=== PATIENT | female | born 1960 | race American Indian/Alaskan Native ===

== ENCOUNTER 2017-04-04 11:41 | Emergency (ER) | payer MEDICARE ==
[2017-04-04 12:58] LABS: Basophils # (Auto) 0.1 K/mm3 (0.0-0.1); Basophils % (Auto) 1.2 % (0.0-1.8); Eosinophils # (Auto) 0.2 K/mm3 (0.0-0.4); Eosinophils % (Auto) 1.8 % (0.0-4.3); Hematocrit 33.1 % (30.3-42.9); Hemoglobin 10.4 gm/dl (10.1-14.3); Lymphocytes # (Auto) 1.7 K/mm3 (1.2-5.4); Lymphocytes % (Auto) 18.9 % (13.4-35.0); Mean Corpuscular HGB Conc 31 % (30-34); Monocytes # (Auto) 0.9 K/mm3 (0.0-0.8); Monocytes % (Auto) 10.3 % (0.0-7.3); Platelet Count 395 K/mm3 (140-440); Red Blood Count 4.96 M/mm3 (3.65-5.03); Red Cell Distribution Width 18.2 % (13.2-15.2)
[2017-04-04 13:02] LABS: Mean Corpuscular Hemoglobin 21 pg (28-32); Mean Corpuscular Volume 67 fl (79-97)
[2017-04-04] MEDS ORDERED: ATIVAN IV ONE (13:31)
[2017-04-04 13:51] LABS: BUN/Creatinine Ratio 17; Blood Urea Nitrogen 12 mg/dL (7-17); Calcium 9.2 mg/dL (8.4-10.2); Hemolysis Index 1
--- NOTE | 2017-04-04 14:07 | Emergency Department Report ---
ED Psych HPI - General Chief Complaint: Psych Stated Complaint: CHEST/BACK PAIN Time Seen by Provider: 04/04/17 13:11 Source: patient Mode of arrival: Ambulatory - History of Present Illness Initial Comments: History of EtOH previously quit is now suicidal threats of wanting to recently restarted alcohol is also having intermittent chest pain denies any shakes or DTs no fever no nausea vomiting no exertional cp or sob, no risks dvt/ pe no abdominal pain MD Complaint: suicidal ideation, feels depressed -: unknown Associated Psychiatric Symptoms: depression, suicidal ideation - Related Data Allergies Allergy/AdvReac Type Severity Reaction Status Date / Time No Known Allergies Allergy Unverified 04/04/17 11:59 ED Review of Systems ROS: Stated complaint: CHEST/BACK PAIN Other details as noted in HPI Comment: All other systems reviewed and negative Constitutional: denies: diaphoresis, fever, malaise, weakness ENT: denies: dental pain, epistaxis Respiratory: denies: cough, orthopnea, shortness of breath, SOB with exertion, SOB at rest, stridor Cardiovascular: chest pain. denies: palpitations, dyspnea on exertion, edema, syncope, paroxysmal nocturnal dyspnea Gastrointestinal: denies: abdominal pain, nausea, vomiting, diarrhea, constipation, hematemesis, melena, hematochezia Musculoskeletal: denies: joint swelling, arthralgia, myalgia Skin: denies: rash, lesions Neurological: denies: numbness, paresthesias, confusion, abnormal gait, vertigo Psychiatric: anxiety, depression, suicidal thoughts ED Past Medical Hx - Past Medical History Previous Medical History?: Yes Hx Hypertension: Yes Hx Arthritis: Yes Hx Psychiatric Treatment: Yes (depression) - Surgical History Past Surgical History?: Yes Additional Surgical History: gastric bypass. tummy tuck - Social History Smoking Status: Current Every Day Smoker Substance Use Type: Alcohol, Cocaine ED Physical Exam - General Limitations: No Limitations General appearance: alert, in no apparent distress, anxious - Head Head exam: Present: atraumatic, normocephalic - Eye Eye exam: Present: normal appearance, PERRL, EOMI - ENT ENT exam: Present: normal exam, normal orophraynx - Neck Neck exam: Present: normal inspection. Absent: tenderness, meningismus - Respiratory Respiratory exam: Present: normal lung sounds bilaterally, other (pulses equal bilaterally). Absent: respiratory distress, wheezes, rales, rhonchi, stridor, chest wall tenderness, prolonged expiratory - Cardiovascular Cardiovascular Exam: Present: regular rate, normal rhythm, normal heart sounds. Absent: systolic murmur, diastolic murmur, rubs, gallop - GI/Abdominal GI/Abdominal exam: Present: soft. Absent: distended, tenderness, guarding, rebound, mass, pulsatile mass - Extremities Exam Extremities exam: Present: normal inspection, normal capillary refill. Absent: pedal edema, joint swelling, calf tenderness - Back Exam Back exam: Present: normal inspection. Absent: tenderness, CVA tenderness (R), CVA tenderness (L), paraspinal tenderness, vertebral tenderness - Neurological Exam Neurological exam: Present: alert, oriented X3, CN II-XII intact. Absent: motor sensory deficit - Psychiatric Psychiatric exam: Present: depressed, agitated, anxious, flat affect, suicidal ideation - Skin Skin exam: Absent: cyanosis, diaphoretic, erythema, urticaria, vesicles, petechiae, pallor, abrasion, ecchymosis ED Course Vital Signs 04/04/17 11:59 Temperature 98.3 F Pulse Rate 80 Respiratory 20 Rate Blood Pressure 162/71 O2 Sat by Pulse 98 Oximetry - Reevaluation(s) Reevaluation #1: 04/04/17 18:21 Patient placed on legal arrival 1013, patient is suicidal she does admit to EtOH but no signs of withdrawal or DTs is noted at this time she is having atypical chest pain ED Medical Decision Making - Lab Data Result diagrams: 04/04/17 12:41 04/04/17 12:41 - EKG Data EKG shows normal: sinus rhythm - EKG Data When compared to previous EKG there are: other (no acute ischemic change) Interpretation: nonspecific ST-T wave reynold - Radiology Data Radiology results: report reviewed - Medical Decision Making Patient with EKG that shows no acute ischemic changes troponins negative 3. Symptoms are atypical. No evidence of PE or DVT is noted at this time. Chest pain workup is therefore unremarkable. Symptoms are not consistent with ACS or an acute emergent chest pain syndrome. Patient was evaluated by psychiatry she is felt to have need for inpatient evaluation given the suicidal ideation. Patient was given Ativan and thiamine. As well as fluids. She is pain-free at this time she is medically cleared for psychiatric evaluation. Her screening psych labs were unremarkable including negative ASA as well as negative APAP as well as negative alcohol. She does not appear to be a risk for DTs at this time given the repeat stable vital signs. Symptoms are atypical for this chest pain she will need to follow up with her regular doctor for this she did verbalize understanding for this she will await psychiatric hospital admission for further evaluation of suicidal ideation Critical care attestation.: If time is entered above; I have spent that time in minutes in the direct care of this critically ill patient, excluding procedure time. ED Disposition Clinical Impression: Atypical chest pain, Suicidal ideation Disposition: [id number]/[id number] PSY HOSP/PSY UNIT Is pt being admited?: No Condition: Stable Instructions: Chest Pain (ED) Time of Disposition: 18:24
--- NOTE | 2017-04-04 15:11 | XRay Report ---
FINAL REPORT EXAM: XR CHEST 1V AP HISTORY: cp TECHNIQUE: Frontal chest x-ray. PRIORS: None currently available. FINDINGS: Cardiac silhouette is within normal limits. There is no effusion. There is no pneumothorax. There is no consolidation. There are no suspicious osseous lesions. IMPRESSION: No acute cardiopulmonary findings.
[2017-04-04 20:11] LABS: Amphetamine Screen,Urine PRESUMPTIVE NEGATIVE; Benzodiazepines Screen,Urine PRESUMPTIVE NEGATIVE; Methadone Screen,Urine PRESUMPTIVE NEGATIVE; Opiate Screen,Urine PRESUMPTIVE NEGATIVE
[2017-04-04 20:17] LABS: Bilirubin,Urine NEG (Negative); Blood,Urine NEG (Negative); Color,Urine Yellow (Yellow); Mucus,Urine 1+ /HPF; Nitrite,Urine NEG (Negative); Protein,Urine <15 mg/dL mg/dL (Negative)
[2017-04-04] MEDS ORDERED: VITAMIN B-1 ONE (20:47)
[2017-04-04] MEDS: VITAMIN B-1 IM ONE ×2 (20:59→21:01)
[2017-04-04 21:15] LABS: Cannabinoid Screen,Urine PRESUMPTIVE POSITIVE; Cocaine Screen,Urine PRESUMPTIVE POSITIVE
--- NOTE | 2017-04-05 16:31 | Consultation ---
History of Present Illness - Reason for Consult Consult date: 04/05/17 Reason for consult: psychiatric evaluation for suicidal ideation. Used alcohol and crack - Chief Complaint Chief complaint: "I want to go back to the [place]." - History of Present Psychiatric Illness 56 year old AA female seen for psychiatric evaluation in the ER. She initially presented for chest pain. She is medically cleared. She used coacine and alcohol prior to arrival. Her ETOH level was 0.09 and UDS was positive for cocaine. She reports being agitated on arrival. She was at [facility] for the last week, after discharge from [place] inpatient. She expressed suicidal ideation on arrival to the ER. She currently denies it. She reports feeling guilty about use of alcohol and cocaine. She reports being diagnosed with major depressive disorder and is currently depressed. She denies psychotic symptoms. She denies manic episodes. She usually takes effexor xr 150mg qam and wellbutrin, unknown dose. She reports trazodone helps her sleep. She reports poor sleep. No etoh withdrawals observed. Medications and Allergies Allergies Allergy/AdvReac Type Severity Reaction Status Date / Time No Known Allergies Allergy Unverified 04/04/17 11:59 Home Medications Medication Instructions Recorded Confirmed Last Taken Type No Known Home Medications [No 04/04/17 04/04/17 Unknown History Reported Home Medications] Past psychiatric history - Past Medical History Past Surgical History: Other (history of gastric bypass and skin resection) - past Psychiatric treatment and history Psych: Addictions, Depression - Social History Social history: other (homeless) Mental Status Exam - Vital signs Last Vital Signs Temp 99.1 F 04/05/17 14:06 Pulse 80 04/05/17 14:06 Resp 17 04/05/17 14:06 BP 114/70 04/05/17 14:06 Pulse Ox 98 04/05/17 14:06 - Exam Orientation: time, place, person Affect: depressed Mood: congruent with affect Thought content: other (denies current SI. no HI) Thought Process: Intact Perceptions: none Speech: normal rate and pattern Concentration: focused Motor activity: normal Level of consciousness: alert Memory: Intact Sleep Symptoms: Difficulty Falling Asleep Appetite: decreased Interaction: cooperative Results Result Diagrams: 04/04/17 12:41 04/04/17 12:41 All other labs normal. Assessment and Plan Assessment and plan: Impression: major depressive disorder, recurrent alcohol use d/o cocaine use d/o Recommendation: 1013 and transfer to inpatient psychiatric hospital Start trazodone 100mg hs for sleep/depression Monitor for alcohol withdrawals
[2017-04-05] MEDS ORDERED: DESYREL PO SCH ×2 (22:00)
[2017-04-06 08:15] VITALS: BP 138/56
[2017-04-06] MEDS: MOTRIN PO ONE ×2 (09:49→13:11)
--- NOTE | 2017-04-06 12:30 | Progress Note ---
Subjective - Reason for Consult Consult date: 04/06/17 Reason for consult: Psychiatry Follow-up - Chief Complaint Chief complaint: "I was never suicidal" 56 year old AA female seen for psychiatric evaluation in the ER. She initially presented for chest pain. She is medically cleared. She used cocaine and alcohol prior to arrival. Her ETOH level was 0.09 and UDS was positive for cocaine. Today the patient is calm and cooperative during the assessment. She stated that she was never suicidal, but made a bad decision to leave the lodge ( [facility]) and get "high" on drugs. She stated that she want to return to [facility] and complete her treatment. She denies SI/HI's and AVH's. She denies any side effects of her medication. Mental Status Exam - Vital signs Last Vital Signs Temp 97.6 F 04/06/17 08:13 Pulse 60 04/06/17 08:13 Resp 16 04/06/17 08:13 BP 138/56 04/06/17 08:13 Pulse Ox 100 04/06/17 08:13 - Exam Narrative exam: MSE: Appearance: calm, cooperative Behavior: regular eye contact Speech: regular rate and tone Mood: "okay" Affect: congruent to mood Thought Process: logical Thought Content: denies SI/HI's and AVH's Motor Activity: ambulatory Cognition: A/O x 3 Insight: fair Judgment: fair Assessment and Plan Impression: MDD. Alcohol Use DO. Substance Use DO (cocaine). Cannabis Use DO. Today the patient is calm and cooperative during the assessment. No alcohol withdrawals noted. Patient is no threat to self. DDx: R/O Substance Induced Mood DO Recommendation/Plan: Rescind 1013. Continue Trazodone 100 mg PO HS for depression/sleep consolidation. Discussed possible suicidality/medication induced zoran with patient reference Trazodone. The patient can return to lod ([facility]) once discharged. The patient not need any prescriptions on discharge.
[2017-04-06] MEDS ORDERED: MOTRIN PO ONE (12:57)
== END 2017-04-06 16:23 | disposition home or self-care (01) ==
LOC: EEVIPCON 11:41 → ED 11:41
DX: F32.9 Major depressive disorder, single episode, unspecified (principal); I10 Essential (primary) hypertension; M19.90 Unspecified osteoarthritis, unspecified site; F17.200 Nicotine dependence, unspecified, uncomplicated; F14.10 Cocaine abuse, uncomplicated
CPT/HCPCS: 36415; 71045; 80048; 80307; 81001; 83735; 84484; 85025; 93005; 93010; 96374; 99285; G0480; J2060; J3411; 80320

== ENCOUNTER 2017-04-26 14:06 | Emergency (ER) | payer MEDICARE ==
[2017-04-26 15:22] LABS: BUN/Creatinine Ratio 20; Blood Urea Nitrogen 14 mg/dL (7-17); Hemolysis Index 105
[2017-04-26 15:23] LABS: Mean Corpuscular HGB Conc 30 % (30-34); Mean Corpuscular Volume 70 fl (79-97); Platelet Count 244 K/mm3 (140-440); Red Blood Count 4.77 M/mm3 (3.65-5.03)
[2017-04-26 15:24] LABS: Hematocrit 33.6 % (30.3-42.9); Mean Corpuscular Hemoglobin 21 pg (28-32)
[2017-04-26 15:59] LABS: Basophils % (Manual) 0 % (0.0-1.8); Total Cells Counted 100
[2017-04-26 16:00] LABS: Anisocytosis 2+; Ovalocytes 1+; Poikilocytosis 1+
[2017-04-26 16:01] LABS: Hypochromasia 1+
[2017-04-26] MEDS ORDERED: NACL 0.9% 1000 ML 1,000 ML IV ONE (22:35)
[2017-04-26] MEDS ORDERED: VALIUM IV ONE (22:35)
[2017-04-26] MEDS ORDERED: VALIUM PO ONE (22:45)
[2017-04-26] MEDS ORDERED: VALIUM ONE (22:46)
--- NOTE | 2017-04-26 23:05 | Emergency Department Report ---
HPI - General Chief Complaint: Psych Time Seen by Provider: 04/26/17 21:29 - HPI HPI: The patient is a 56-year-old female presents for evaluation of generalized myalgias and mental health. The patient states that she has felt constant achy in quality severe pain for the past day, she believes secondary to withdrawal from drug use. She states that she last used crack cocaine this morning, less than 12 hours ago. She also reports constant severe sadness and depression for the past one day, associated with suicidal ideations. The patient denies fever, headache, chest pain, dyspnea, hemoptysis, abdominal pain, vomiting, headache, unexplained weight loss or weight gain, heat or cold intolerance, skin, hair, or nail changes, neuro deficits, homicidal ideations, or auditory or visual hallucinations. ED Past Medical Hx - Past Medical History Hx Hypertension: Yes Hx Congestive Heart Failure: No Hx Diabetes: No Hx Arthritis: Yes Hx Psychiatric Treatment: Yes (depression) Hx Asthma: No Hx COPD: No Additional medical history: drug and alcohol abuse - Surgical History Additional Surgical History: gastric bypass. claudia king - Social History Smoking Status: Never Smoker Substance Use Type: Alcohol, Other - Medications Home Medications: Home Medications Medication Instructions Recorded Confirmed Last Taken Type Aspirin EC [Aspirin Enteric Coated 325 mg PO QDAY #30 tablet 04/16/17 Unknown Rx TAB] Venlafaxine Xr [Effexor XR] 75 mg PO QDAY #30 capsule 04/16/17 Unknown Rx oxyCODONE /ACETAMINOPHEN [Percocet 1 tab PO Q6H PRN #10 tablet 04/16/17 Unknown Rx 5/325 mg] ED Review of Systems ROS: Stated complaint: SUICIDAL TENDENCIES Other details as noted in HPI Constitutional: denies: fever ENT: denies: throat or neck pain Respiratory: denies: cough, shortness of breath Cardiovascular: denies: chest pain Endocrine: denies unexplained weight loss or gain Gastrointestinal: denies: abdominal pain, nausea Genitourinary: denies: dysuria Musculoskeletal: reports generalized myaglias denies: leg swelling Skin: denies: rash Neurological: denies: headache Hematological/Lymphatic: denies: easy bleeding or easy bruising Psych: reports sadness or hopelessness Physical Exam - Physical Exam Vital Signs: Vital Signs 04/26/17 04/26/17 14:15 22:14 Temperature 98.5 F 98 F Pulse Rate 97 H 88 Respiratory 18 Rate Blood Pressure 176/71 Blood Pressure 160/72 [Left] O2 Sat by Pulse 99 Oximetry Physical Exam: General: well-nourished, well-developed, no acute distress Head: Normocephalic, atraumatic Eyes: normal sclera ENT: Mucous membranes are pale and dry Neck: No neck stiffness, no cervical adenopathy Respiratory: Breath sounds equal bilaterally, no wheezing, rales, or rhonchi Cardio: S1 and S2 present, no murmurs, rubs, gallops, capillary refill is delayed Abdomen: Normoactive bowel sounds, soft abdomen, no tenderness Chest WALL/Back: No tenderness to palpation of the chest wall, no CVA tenderness with percussion Musc: No pitting edema Skin: No rash Neuro: no facial drooping, normal speech Psych: Flat affect, normal insight, normal behavior, depressed mood, no suicidal or homicidal ideation ED Course Vital Signs 04/26/17 04/26/17 14:15 22:14 Temperature 98.5 F 98 F Pulse Rate 97 H 88 Respiratory 18 Rate Blood Pressure 176/71 Blood Pressure 160/72 [Left] O2 Sat by Pulse 99 Oximetry ED Medical Decision Making - Lab Data Result diagrams: 04/26/17 14:45 04/26/17 14:45 - Medical Decision Making The patient was seen and examined by myself. The patient is placed on a rn cardiac and continuous pulse ox. On initial evaluation, the patient was found to be in no distress. Labs are obtained. The patient given 1 L normal saline fluid bolus for treatment of dehydration. Lab results are grossly unremarkable including normal cbc, Cr, urinalysis. The patient is medically clear. Mental health is consulted. Mental health evaluates the patient and agrees that the patient is at risk of harm to self. A 1013 is completed. The patient will be admitted to a psychiatric facility once bed placement is obtained. Critical care attestation.: If time is entered above; I have spent that time in minutes in the direct care of this critically ill patient, excluding procedure time. ED Disposition Clinical Impression: Suicidal ideation Depression Qualifiers: Depression Type: major depressive disorder Major depression recurrence: recurrent Active/Remission status: currently active Major depression episode severity: unspecified Qualified Code(s): F33.9 - Major depressive disorder, recurrent, unspecified Disposition: - TO HOME OR SELFCARE Is pt being admited?: No Does the pt Need Aspirin: No Condition: Serious Referrals: WHITNEY GALVAN MD [Primary Care Provider] - 3-5 Days Time of Disposition: 06:37
[2017-04-26 23:31] LABS: Bacteria,Urine 2+ /HPF (Negative); Bilirubin,Urine SM (Negative); Blood,Urine NEG (Negative); Color,Urine Amber (Yellow); Mucus,Urine 3+ /HPF; Protein,Urine <15 mg/dL mg/dL (Negative)
[2017-04-26 23:38] LABS: Amphetamine Screen,Urine PRESUMPTIVE NEGATIVE; Benzodiazepines Screen,Urine PRESUMPTIVE NEGATIVE; Cannabinoid Screen,Urine PRESUMPTIVE NEGATIVE; Methadone Screen,Urine PRESUMPTIVE NEGATIVE; Opiate Screen,Urine PRESUMPTIVE NEGATIVE
[2017-04-26 23:53] LABS: Ictotest,Urine Negative (Negative)
[2017-04-26 23:54] LABS: Cocaine Screen,Urine PRESUMPTIVE POSITIVE
--- NOTE | 2017-04-27 12:10 | Consultation ---
History of Present Illness - Reason for Consult Consult date: 04/27/17 Reason for consult: Mental Health Evaluation Requesting physician: LEXUS CUENCA - Chief Complaint Chief complaint: "I don't know what to do with myself" - History of Present Psychiatric Illness 56-year-old female presents for evaluation of generalized myalgias and mental health. This patient is known to me. She was just discharged from [facility] for similar behavior 04/16/2017. Today the patient is calm during the assessment. She stated that she is suicidal and need help "period." She stated that she used cocaine and was drinking prior to that. She was asked what triggered her to use cocaine, she stated, 'I don't know." She could not state the last time she took Effexor her home medication for depression. She denies HI's and AVH's. She denies sleep disturbance and a poor appetite. She denies any manic episodes in the past. Medications and Allergies Allergies Allergy/AdvReac Type Severity Reaction Status Date / Time No Known Allergies Allergy Unverified 04/04/17 11:59 Home Medications Medication Instructions Recorded Confirmed Last Taken Type Aspirin EC [Aspirin Enteric Coated 325 mg PO QDAY #30 tablet 04/16/17 Unknown Rx TAB] Venlafaxine Xr [Effexor XR] 75 mg PO QDAY #30 capsule 04/16/17 Unknown Rx oxyCODONE /ACETAMINOPHEN [Percocet 1 tab PO Q6H PRN #10 tablet 04/16/17 Unknown Rx 5/325 mg] Past psychiatric history - Past Medical History Past Medical History: other (Arthritis) Past Surgical History: No surgical history - past Psychiatric treatment and history Psych: Depression psychiatric treatment history: Multiple inpatient psy settings. Denies a fam psy hx. - Social History Social history: lives with family Mental Status Exam - Vital signs Last Vital Signs Temp 98 F 04/26/17 22:14 Pulse 83 04/27/17 05:31 Resp 21 04/27/17 05:31 BP 142/66 04/27/17 05:31 Pulse Ox 97 04/27/17 05:31 - Exam Narrative exam: MSE: Appearance: calm, cooperative Behavior: poor eye contact Speech: regular rate and tone Mood: "depressed" Affect: congruent to mood Thought Process: circumstantial Thought Content: denies HI's and AVH's Motor Activity: ambulatory Cognition: A/O x3 Insight: fair Judgment: variable Results Result Diagrams: 04/26/17 14:45 04/26/17 14:45 Abnormal lab results 04/26/17 04/26/17 04/26/17 Range/Units 14:45 14:45 14:45 Hgb 10.0 L (10.1-14.3) gm/dl MCV 70 L (79-97) fl MCH 21 L (28-32) pg RDW 19.0 H (13.2-15.2) % Monocytes % (Manual) 12.0 H (0.0-7.3) % Lymphocytes # (Manual) 1.0 L (1.2-5.4) K/mm3 Salicylates < 0.3 L (2.8-20.0) mg/dL Acetaminophen < 5.0 L (10.0-30.0) ug/mL All other labs normal. Assessment and Plan Assessment and plan: Impression: MDD, Severe Type. Substance Use DO (cocaine). Today the patient is calm during the assessment. The patient endorses SI's without a plan. The patient stated drinking alcohol prior to using cocaine, but her alcohol serum is WNL. DDx: R/O Bipolar DO, R/O Substance Induced Mood DO Recommendation/Plan: Continue 1013 with placement to [facility] today, pending transport time. Start Effexor 75 mg PO daily for depression. Discussed possible suicidality/medication induced zoran with patient reference Effexor.
[2017-04-27] MEDS ORDERED: EFFEXOR PO SCH (13:00)
[2017-04-27 14:38] VITALS: BP 142/67
== END 2017-04-27 14:58 ==
LOC: ED 14:06
DX: F32.9 Major depressive disorder, single episode, unspecified (principal); R45.851 Suicidal ideations; I10 Essential (primary) hypertension; M19.90 Unspecified osteoarthritis, unspecified site
CPT/HCPCS: 36415; 80048; 80307; 81001; 85007; 85025; 96360; 99285; G0480; J7030; 80320

== ENCOUNTER 2018-04-03 09:19 | Inpatient (IN) | payer MEDICARE ==
--- NOTE | 2018-04-03 10:54 | Emergency Department Report ---
ED Chest Pain HPI - General Chief Complaint: Chest Pain Stated Complaint: CHEST PAIN Time Seen by Provider: 04/03/18 10:52 Source: patient, RN notes reviewed, old records reviewed Mode of arrival: Ambulatory Limitations: No Limitations - History of Present Illness Initial Comments: This is a 57-year-old female who is not known to this provider previously, does not have a local primary care doctor, has a history of hypertension, depression, gastric bypass, drug and alcohol abuse. The patient presents to the emergency room today with a complaint of resolved chest pain. The chest pain as central, left-sided and right-sided started yesterday. It is intermittent. It does not radiates to the back, arms or neck. There is no vomiting, diaphoresis, shortness of breath. It started after she used cocaine. The patient denies DVT, pulmonary embolus risk factors. She is asking to eat. She also complains of diffuse arthritis. She reports that she is chest pain-free at this time. She reports that she is not currently homicidal, suicidal. MD Complaint: chest pain -: Gradual Onset: associated with drug use Pain Location: substernal, left chest, right chest Pain Radiation: none Severity: moderate Severity scale (0 -10): 8 Quality: tightness Consistency: intermittent Improves With: nothing Worsens With: nothing Aspirin use within the Past 7 Days: (0) No - Related Data Previous Rx's Medication Instructions Recorded Last Taken Type Aspirin EC [Aspirin Enteric Coated 325 mg PO QDAY #30 tablet 04/16/17 Unknown Rx TAB] Venlafaxine Xr [Effexor XR] 75 mg PO QDAY #30 capsule 04/16/17 Unknown Rx oxyCODONE /ACETAMINOPHEN [Percocet 1 tab PO Q6H PRN #10 tablet 04/16/17 Unknown Rx 5/325 mg] Allergies Allergy/AdvReac Type Severity Reaction Status Date / Time No Known Allergies Allergy Verified 04/03/18 09:21 Heart Score - HEART Score History: Slightly suspicious EKG: Non-specific Age: 45-65 Risk factors: 1-2 risk factors Troponin: < normal limit HEART Score: 3 - Critical Actions Critical Actions: 0-3 pts:0.9-1.7%risk of adverse cardiac event.Candidate for discharge ED Review of Systems ROS: Stated complaint: CHEST PAIN Other details as noted in HPI Constitutional: malaise. denies: fever ENT: denies: epistaxis Respiratory: denies: cough Cardiovascular: chest pain Gastrointestinal: denies: abdominal pain, vomiting Genitourinary: denies: frequency Musculoskeletal: arthralgia, myalgia Skin: denies: lesions Neurological: weakness Psychiatric: anxiety. denies: homicidal thoughts, suicidal thoughts ED Past Medical Hx - Past Medical History Hx Hypertension: Yes Hx Congestive Heart Failure: No Hx Diabetes: No Hx Arthritis: Yes Hx Psychiatric Treatment: Yes (depression) Hx Asthma: No Hx COPD: No Additional medical history: drug and alcohol abuse - Surgical History Additional Surgical History: gastric bypass. tummy tuck - Social History Smoking Status: Current Every Day Smoker Substance Use Type: Alcohol, Cocaine - Medications Home Medications: Home Medications Medication Instructions Recorded Confirmed Last Taken Type Aspirin EC [Aspirin Enteric Coated 325 mg PO QDAY #30 tablet 04/16/17 Unknown Rx TAB] Venlafaxine Xr [Effexor XR] 75 mg PO QDAY #30 capsule 04/16/17 Unknown Rx oxyCODONE /ACETAMINOPHEN [Percocet 1 tab PO Q6H PRN #10 tablet 04/16/17 Unknown Rx 5/325 mg] ED Physical Exam - General Limitations: No Limitations General appearance: alert, anxious, in distress - Head Head exam: Present: atraumatic, normocephalic - Eye Eye exam: Present: normal appearance, EOMI. Absent: nystagmus - ENT ENT exam: Present: normal exam, normal orophraynx, mucous membranes moist, nor mal external ear exam - Neck Neck exam: Present: normal inspection, full ROM. Absent: tenderness, meningismus - Respiratory Respiratory exam: Present: normal lung sounds bilaterally. Absent: respiratory distress - Cardiovascular Cardiovascular Exam: Present: regular rate, normal rhythm, normal heart sounds. Absent: bradycardia, tachycardia, irregular rhythm, systolic murmur, diastolic murmur, rubs, gallop - GI/Abdominal GI/Abdominal exam: Present: soft. Absent: distended, tenderness, guarding, rebound, rigid, pulsatile mass - Extremities Exam Extremities exam: Present: normal inspection, full ROM, other (2+ pulses noted in the bilateral upper, lower extremities. Compartments soft. No long bony tenderness. The pelvis is stable.). Absent: calf tenderness - Back Exam Back exam: Present: normal inspection, full ROM. Absent: tenderness, CVA tenderness (R), paraspinal tenderness, vertebral tenderness - Neurological Exam Neurological exam: Present: alert, oriented X3, CN II-XII intact, normal gait, other (Extraocular movements intact. Tongue midline. No facial droop. Facial sensation intact to light touch in the V1, V2, V3 distribution bilaterally. 5 and 5 strength in 4 extremities.. Sensation is intact to light touch in 4 extremities.). Absent: motor sensory deficit - Psychiatric Psychiatric exam: Present: anxious. Absent: homicidal ideation, suicidal idea tion - Skin Skin exam: Present: warm, dry, intact, normal color. Absent: rash ED Course Vital Signs 04/03/18 04/03/18 04/03/18 09:22 09:45 10:00 Temperature 97.8 F Pulse Rate 98 H 79 83 Respiratory 18 14 19 Rate Blood Pressure 176/91 142/79 O2 Sat by Pulse 100 100 Oximetry 04/03/18 04/03/18 04/03/18 10:16 10:30 10:46 Temperature Pulse Rate 65 79 82 Respiratory 22 14 18 Rate Blood Pressure 142/79 142/79 142/79 O2 Sat by Pulse 98 100 100 Oximetry 04/03/18 04/03/18 04/03/18 11:00 11:16 11:30 Temperature Pulse Rate 74 73 69 Respiratory 20 21 16 Rate Blood Pressure 166/87 166/87 166/87 O2 Sat by Pulse 100 100 100 Oximetry - Consultations Consultation #1: 04/03/18 12:15 Dr. Olmos accept the patient to the medical service. LINDA score - Linda Score Age > 65: (0) No Aspirin use within the Past 7 Days: (0) No 3 or more CAD Risk Factors: (0) No 2 or more Angina events in past 24 hrs: (0) No Known CAD with more than 50% Stenosis: (0) No Elevated Cardiac Markers: (0) No ST Deviation Greater than 0.5mm: (0) No LINDA Score: 0 ED Medical Decision Making - Lab Data Result diagrams: 04/03/18 10:28 04/03/18 10:28 Vital Signs 04/03/18 04/03/18 04/03/18 09:22 09:45 10:00 Temperature 97.8 F Pulse Rate 98 H 79 83 Respiratory 18 14 19 Rate Blood Pressure 176/91 142/79 O2 Sat by Pulse 100 100 Oximetry 0204/03/18 04/03/18 10:16 10:30 10:46 Temperature Pulse Rate 65 79 82 Respiratory 22 14 18 Rate Blood Pressure 142/79 142/79 142/79 O2 Sat by Pulse 98 100 100 Oximetry 04/03/18 04/03/18 04/03/18 11:00 11:16 11:30 Temperature Pulse Rate 74 73 69 Respiratory 20 21 16 Rate Blood Pressure 166/87 166/87 166/87 O2 Sat by Pulse 100 100 100 Oximetry Lab Results 04/03/18 04/03/18 04/03/18 Range/Units 10:28 10:28 11:00 WBC 4.5 (4.5-11.0) K/mm3 RBC 4.52 (3.65-5.03) M/mm3 Hgb 9.1 L (10.1-14.3) gm/dl Hct 30.3 (30.3-42.9) % MCV 67 L (79-97) fl MCH 20 L (28-32) pg MCHC 30 (30-34) % RDW 17.9 H (13.2-15.2) % Plt Count 367 (140-440) K/mm3 Sodium 140 (137-145) mmol/L Potassium 3.8 (3.6-5.0) mmol/L Chloride 104.6 (98-107) mmol/L Carbon Dioxide 25 (22-30) mmol/L Anion Gap 14 mmol/L BUN 12 (7-17) mg/dL Creatinine 0.6 L (0.7-1.2) mg/dL Estimated GFR > 60 ml/min BUN/Creatinine Ratio 20 % Glucose 75 (65-100) mg/dL Calcium 9.0 (8.4-10.2) mg/dL Total Creatine Kinase 186 H (30-135) units/L Troponin T < 0.010 (0.00-0.029) ng/mL Salicylates (2.8-20.0) mg/dL Acetaminophen (10.0-30.0) ug/mL 04/03/18 04/03/18 Range/Units 11:00 11:00 WBC (4.5-11.0) K/mm3 RBC (3.65-5.03) M/mm3 Hgb (10.1-14.3) gm/dl Hct (30.3-42.9) % MCV (79-97) fl MCH (28-32) pg MCHC (30-34) % RDW (13.2-15.2) % Plt Count (140-440) K/mm3 Sodium (137-145) mmol/L Potassium (3.6-5.0) mmol/L Chloride (98-107) mmol/L Carbon Dioxide (22-30) mmol/L Anion Gap mmol/L BUN (7-17) mg/dL Creatinine (0.7-1.2) mg/dL Estimated GFR ml/min BUN/Creatinine Ratio % Glucose (65-100) mg/dL Calcium (8.4-10.2) mg/dL Total Creatine Kinase (30-135) units/L Troponin T (0.00-0.029) ng/mL Salicylates < 0.3 L (2.8-20.0) mg/dL Acetaminophen < 5.0 L (10.0-30.0) ug/mL - EKG Data -: EKG Interpreted by Me - EKG Data 04/03/18 12:11 Sinus, 84 bpm, normal axis, QTC prolonged, diffuse ST depression, anteroseptal leads, inferior leads, not consistent with ST elevation myocardial infarction, when compared to prior EKG from 2013, these ST depressions appeared to be somewhat new, and some of the leads distribution. Inferior leads appeared to be chronic, although more exaggerated. - Radiology Data Radiology results: pending, report reviewed, image reviewed interpreted by me: X-ray of the chest is negative for acute disease. - Medical Decision Making Differential diagnosis, including but not limited to, acute coronary syndrome, vasospasm, cocaine dependency, myositis, arthritis, arthralgias, depression, h omelessness Assessment and plan: 57-year-old female with a primary complaint of chest pain associated with cocaine use. The patient is afebrile, with reassuring vital signs with the exception of hypertension, and is currently chest pain-free. She reports no pulmonary embolus or DVT risk factors acutely, she is not hypoxic, she is not tachycardic, and is low risk by well's criteria. Her chest pain is atypical history, however her EKG has diffuse ST depression and abnormalities, subtle, although they appears to be more pronounced than on prior EKG. Her cocaine, gender, age, all risk factors for vascular disease, and the patient does not have the ability to closely follow up as an outpatient to complete a cardiac risk stratification. She is chest pain-free at this time, does not meet 1013 criteria, screening laboratory studies so far unremarkable, however patient given her abnormal EKG may benefit from inpatient cardiac risk stratification. Therefore, we will contact the hospital team to arrange hospitalization for cardiac risk stratification. Critical care attestation.: If time is entered above; I have spent that time in minutes in the direct care of this critically ill patient, excluding procedure time. ED Disposition Clinical Impression: Polysubstance abuse, Depression, Chest pain, Abnormal EKG Disposition: OP ADMIT IP TO THIS HOSP Is pt being admited?: Yes Does the pt Need Aspirin: Yes Condition: Good Instructions: Chest Pain (ED) Referrals: HELEN CROWELL MD [Primary Care Provider] - 3-5 Days
[2018-04-03 11:03] LABS: BUN/Creatinine Ratio 20; Blood Urea Nitrogen 12 mg/dL (7-17); Hemolysis Index 5
[2018-04-03] MEDS: NITROSTAT SL PRN ×3 (11:08→11:57)
[2018-04-03 11:43] LABS: Hematocrit 30.3 % (30.3-42.9); Hemoglobin 9.1 gm/dl (10.1-14.3); Mean Corpuscular HGB Conc 30 % (30-34); Platelet Count 367 K/mm3 (140-440); Red Blood Count 4.52 M/mm3 (3.65-5.03); Red Cell Distribution Width 17.9 % (13.2-15.2)
[2018-04-03 11:52] LABS: Mean Corpuscular Volume 67 fl (79-97)
--- NOTE | 2018-04-03 12:13 | XRay Report ---
FINAL REPORT EXAM: XR CHEST ROUTINE 2V HISTORY: cp TECHNIQUE: Frontal and lateral chest radiographs. PRIORS: 04/12/2017. FINDINGS: Unchanged aortic calculi. The cardiomediastinal silhouette is normal. No focal consolidation. No pleural effusion. No pneumothorax. No acute osseous abnormality. IMPRESSION: No acute cardiopulmonary process.
[2018-04-03] MEDS ORDERED: BABY ASPIRIN PO ONE (12:14)
--- NOTE | 2018-04-03 12:27 | History and Physical Report ---
History of Present Illness Chief complaint: My chest hurts History of present illness: 57 YO Female with HTN, OA, Depression, Polysubstance Abuse presents to ED for evaluation. Pt states that she has experienced pain in her chest over the past 1 day with worsening symptoms over the past 8 hours. Pt states that pain is 8/10, substernal, severe, crushing, located on both sides of her chest simultaneously, nonradiating, intermittent, not worsened with exertion, not relieved with rest. Pt states that he symptoms began immediately after ingestion of an unknown quantity of cocaine. Pt denies fever, chills, palpitations, NVD, Trauma, BRBPR, prolonged travel/immobility, individual/family history of DVT/PE, productive cough, syncope, or recent ill contacts. Pt seen and evaluated in ED and found to have Chest pain S/P cocaine ingestion. Pt admitted to telemetry. Cardiology consulted in ED. Past History Past Medical History: arthritis, hypertension, other (PSA) Past Surgical History: bowel surgery Social history: single, smoking, alcohol abuse Family history: hypertension Medications and Allergies Allergies Allergy/AdvReac Type Severity Reaction Status Date / Time No Known Allergies Allergy Verified 04/03/18 09:21 Home Medications Medication Instructions Recorded Confirmed Last Taken Type Aspirin EC [Aspirin Enteric Coated 325 mg PO QDAY #30 tablet 04/16/17 Unknown Rx TAB] Venlafaxine Xr [Effexor XR] 75 mg PO QDAY #30 capsule 04/16/17 Unknown Rx oxyCODONE /ACETAMINOPHEN [Percocet 1 tab PO Q6H PRN #10 tablet 04/16/17 Unknown Rx 5/325 mg] Active Meds: Active Medications Nitroglycerin (Nitrostat) 0.4 mg SL .Q5MIN PRN PRN Reason: Chest Pain Last Admin: 04/03/18 11:57 Dose: 0.4 mg Documented by: Review of Systems Constitutional: no weight loss, no weight gain, no fever, no chills Ears, nose, mouth and throat: no ear pain, no ear discharge, no tinnitis, no decreased hearing Breasts: no change in shape, no swelling, no mass Cardiovascular: chest pain, no orthopnea, no palpitations Respiratory: no cough, no cough with sputum, no excessive sputum, no hemoptysis Gastrointestinal: no nausea, no vomiting, no diarrhea, no constipation Genitourinary Female: no pelvic pain, no flank pain, no menorrhagia, no dysuria, no urinary frequency, no urgency Rectal: no pain, no incontinence, no bleeding Musculoskeletal: no neck stiffness, no neck pain, no shooting arm pain, no arm numbness/tingling, no low back pain Integumentary: no rash, no pruritis, no redness, no sores, no wounds Neurological: no transient paralysis, no paralysis, no weakness, no parathesias, no numbness Psychiatric: no anxiety, no memory loss, no change in sleep habits, no sleep disturbances, no insomnia Endocrine: no cold intolerance, no heat intolerance, no polyphagia, no excessive thirst, no polydipsia Hematologic/Lymphatic: no easy bruising, no easy bleeding Allergic/Immunologic: no urticaria, no allergic rhinitis, no wheezing Exam - Constitutional Vitals: Temp Pulse Resp BP Pulse Ox 97.8 F 69 16 166/87 100 04/03/18 09:22 04/03/18 11:30 04/03/18 11:30 04/03/18 11:30 04/03/18 11:30 General appearance: Present: mild distress, obese - EENT Eyes: Present: PERRL ENT: hearing intact, clear oral mucosa - Neck Neck: Present: supple, normal ROM - Respiratory Respiratory effort: normal Respiratory: bilateral: CTA - Cardiovascular Heart Sounds: Present: S1 & S2. Absent: rub, click - Extremities Extremities: pulses symmetrical, No edema Peripheral Pulses: within normal limits - Abdominal General gastrointestinal: Present: soft, non-tender, non-distended, normal bowel sounds Female genitourinary: Present: normal - Integumentary Integumentary: Present: clear, warm, dry - Musculoskeletal Musculoskeletal: gait normal, strength equal bilaterally - Psychiatric Psychiatric: appropriate mood/affect, intact judgment & insight - Neurologic Neurologic: CNII-XII intact, moves all extremities Results - Labs CBC & Chem 7: 04/03/18 10:28 04/03/18 10:28 Labs: Abnormal lab results 04/03/18 04/03/18 04/03/18 Range/Units 10:28 10:28 11:00 Hgb 9.1 L (10.1-14.3) gm/dl MCV 67 L (79-97) fl MCH 20 L (28-32) pg RDW 17.9 H (13.2-15.2) % Creatinine 0.6 L (0.7-1.2) mg/dL Total Creatine Kinase 186 H (30-135) units/L Salicylates (2.8-20.0) mg/dL Acetaminophen (10.0-30.0) ug/mL 04/03/18 04/03/18 Range/Units 11:00 11:00 Hgb (10.1-14.3) gm/dl MCV (79-97) fl MCH (28-32) pg RDW (13.2-15.2) % Creatinine (0.7-1.2) mg/dL Total Creatine Kinase (30-135) units/L Salicylates < 0.3 L (2.8-20.0) mg/dL Acetaminophen < 5.0 L (10.0-30.0) ug/mL Assessment and Plan - Patient Problems (1) Diastolic CHF Current Visit: Yes Status: Suspected Qualifiers: Heart failure chronicity: acute Qualified Code(s): I50.31 - Acute diastolic (congestive) heart failure Plan to address problem: Admit to Telemetry, Cardiology consulted in ED, serial cardiac enzymes, BNP, D dimer, echo, Review previous echo results, strict I/O, daily weight, monitor uop q shift, afterload reduction, monitor bp q shift, (2) Chest pain Current Visit: Yes Status: Acute Qualifiers: Ischemic chest pain type: stable angina pectoris Plan to address problem: Admit to telemetry: Serial cardiac enzymes, urine drug screen, morphine, supplemental oxygen, nitro, aspirin, cardiology consulted in ED (3) Polysubstance abuse Current Visit: Yes Status: Acute Plan to address problem: Psychiatry consulted (4) Suicide ideation Current Visit: Yes Status: Acute Plan to address problem: Notified by nursing staff from telemetry, that patient reports suicide ideation. Pt denied SI/HI/ or Plan in ED during interview. Psychiatry consulted upon notification of Suicide ideation. (5) DVT prophylaxis Current Visit: Yes Status: Acute Plan to address problem: SCD to BLE while in bed.
[2018-04-03] MEDS ORDERED: PROVENTIL IH PRN (12:29)
[2018-04-03] MEDS ORDERED: SODIUM CHLORIDE FLUSH SYRINGE 10 ML IV PRN ×2 (12:29)
[2018-04-03] MEDS ORDERED: TYLENOL PO PRN (12:29)
[2018-04-03] MEDS ORDERED: ZOFRAN IV PRN (12:29)
[2018-04-03 12:59] LABS: Total Cells Counted 100
[2018-04-03 13:01] LABS: Hypochromasia 2+
[2018-04-03 13:02] LABS: Target Cells 1+
[2018-04-03 13:03] LABS: Platelet Estimate Consistent w Auto
[2018-04-03 14:38] LABS: Chol/HDL Ratio 2.03 %
[2018-04-03] MEDS: MORPHINE IV PRN ×2 (14:49→20:13)
[2018-04-03] MEDS: PEPCID PO SCH (21:32)
[2018-04-03] MEDS: SODIUM CHLORIDE FLUSH SYRINGE 10 ML IV SCH (21:33)
[2018-04-04] MEDS: MORPHINE IV PRN ×2 (04:51→10:13)
[2018-04-04 05:13] LABS: Amphetamine Screen,Urine PRESUMPTIVE NEGATIVE; Benzodiazepines Screen,Urine PRESUMPTIVE NEGATIVE; Cannabinoid Screen,Urine PRESUMPTIVE NEGATIVE; Methadone Screen,Urine PRESUMPTIVE NEGATIVE
[2018-04-04 06:03] LABS: Cocaine Screen,Urine PRESUMPTIVE POSITIVE; Opiate Screen,Urine PRESUMPTIVE POSITIVE
[2018-04-04] MEDS: EFFEXOR XR PO SCH (10:08)
[2018-04-04] MEDS: PEPCID PO SCH ×2 (10:08→22:16)
[2018-04-04] MEDS: SODIUM CHLORIDE FLUSH SYRINGE 10 ML IV SCH ×2 (10:08→22:16)
--- NOTE | 2018-04-04 10:44 | Consultation ---
History of Present Illness Consult date: 04/04/18 Requesting physician: LENNY VIVAS Consult reason: chest pain History of present illness: 57 YO Female with HTN, OA, Depression, Polysubstance Abuse presents to ED for evaluation. Pt in ed states that she has experienced pain in her chest over the past 1 day with worsening symptoms over the past 8 hours. Pt states that pain is 8/10, substernal, severe, crushing, located on both sides of her chest simultaneously, nonradiating, intermittent, not worsened with exertion, not relieved with rest. Patient this morning has no chest pain or shortness of breath Pt states that he symptoms began immediately after ingestion of an unknown quantity of cocaine. Pt denies fever, chills, palpitations, NVD, Trauma, BRBPR, prolonged travel/immobility, individual/family history of DVT/PE, productive cough, syncope, or recent ill contacts. Pt seen and evaluated in ED and found to have Chest pain S/P cocaine ingestion. As per chart patient states is been intermediate polysubstance abuse was in the hospital last her negative stress echocardiogram went to the rehabilitation facility became to the emergency room for chest pain Past History Past Medical History: arthritis, hypertension, other (PSA) Past Surgical History: bowel surgery Social history: single, smoking, alcohol abuse, other (cocaine) Family history: hypertension Medications and Allergies Allergies Allergy/AdvReac Type Severity Reaction Status Date / Time No Known Allergies Allergy Verified 04/03/18 09:21 Home Medications Medication Instructions Recorded Confirmed Last Taken Type Amlodipine Besylate [Norvasc] 10 mg PO DAILY 04/03/18 04/03/18 Unknown History Oxycodone HCl/Acetaminophen 1 each PO TID 04/03/18 04/03/18 04/01/18 History [Percocet 10/325 mg] Venlafaxine Xr [Effexor Xr] 225 mg PO QDAY 04/03/18 04/03/18 04/01/18 History Active Meds: Active Medications Acetaminophen (Tylenol) 650 mg PO Q4H PRN PRN Reason: Pain MILD(1-3)/Fever >100.5/GUNN Albuterol (Proventil) 2.5 mg IH Q4HRT PRN PRN Reason: Shortness Of Breath Amlodipine Besylate (Norvasc) 2.5 mg PO QDAY ARISTEO Famotidine (Pepcid) 20 mg PO BID [facility] Last Admin: 04/04/18 10:08 Dose: 20 mg Documented by: Morphine Sulfate (Morphine) 2 mg IV Q4H PRN PRN Reason: Pain, Moderate (4-6) Last Admin: 04/04/18 10:13 Dose: 2 mg Documented by: Nitroglycerin (Nitrostat) 0.4 mg SL .Q5MIN PRN PRN Reason: Chest Pain Last Admin: 04/03/18 11:57 Dose: 0.4 mg Documented by: Ondansetron HCl (Zofran) 4 mg IV Q8H PRN PRN Reason: Nausea And Vomiting Sodium Chloride (Sodium Chloride Flush Syringe 10 Ml) 10 ml IV BID [facility] Last Admin: 04/04/18 10:08 Dose: 10 ml Documented by: Sodium Chloride (Sodium Chloride Flush Syringe 10 Ml) 10 ml IV PRN PRN PRN Reason: LINE FLUSH Sodium Chloride (Sodium Chloride Flush Syringe 10 Ml) 10 ml IV PRN PRN PRN Reason: LINE FLUSH Venlafaxine HCl (Effexor Xr) 75 mg PO QDAY [facility] Last Admin: 04/04/18 10:08 Dose: 75 mg Documented by: Review of Systems All systems: negative Physical Examination Vital Signs Temp Pulse Resp BP Pulse Ox 97.8 F 98 H 18 176/91 100 04/03/18 09:22 04/03/18 09:22 04/03/18 09:22 04/03/18 09:22 04/03/18 09:22 General appearance: no acute distress, well-nourished HEENT: Positive: PERRL, Mucus Membranes Moist Neck: Positive: neck supple, trachea midline Cardiac: Positive: Reg Rate and Rhythm, S1/S2. Negative: Audible Murmur Lungs: Positive: clear to auscultation, Normal Breath Sounds Neuro: Positive: Grossly Intact Abdomen: Positive: Soft, Active Bowel Sounds. Negative: Tender, Distended Female genitourinary: deferred Skin: Positive: Clear Incision: Cardiac Cath Site Musculoskeletal: No Pain, Normal Range of Motion Extremities: Present: normal. Absent: edema Results 04/03/18 10:28 04/03/18 10:28 Lipids 04/03/18 Range/Units 13:45 Triglycerides 68 (2-149) mg/dL Cholesterol 134 (50-199) mg/dL HDL Cholesterol 66 H (40-59) mg/dL Cholesterol/HDL Ratio 2.03 % CBC 04/03/18 Range/Units 10:28 WBC 4.5 (4.5-11.0) K/mm3 RBC 4.52 (3.65-5.03) M/mm3 Hgb 9.1 L (10.1-14.3) gm/dl Hct 30.3 (30.3-42.9) % Plt Count 367 (140-440) K/mm3 Comprehensive Metabolic Panel 04/03/18 Range/Units 10:28 Sodium 140 (137-145) mmol/L Potassium 3.8 (3.6-5.0) mmol/L Chloride 104.6 (98-107) mmol/L Carbon Dioxide 25 (22-30) mmol/L BUN 12 (7-17) mg/dL Creatinine 0.6 L (0.7-1.2) mg/dL Glucose 75 (65-100) mg/dL Calcium 9.0 (8.4-10.2) mg/dL - Imaging and Cardiology Stress echo: other (03/2017 normal myocardial perfusion no ischemia) Echo: report reviewed (03/2017 normal LV functionand significant regurgitations) EKG interpretations - Telemetry EKG Rhythm: Sinus Rhythm (normal sinus rhythm nonspecific ST-T is) Assessment and Plan Chest pain secondary cocaine Hypertension Osteoarthritis Mental illness Recommend frequent rest of review continue Norvasc for BP control avoid beta blockers given his history of cocaine use will repeat a stress test echocardiogram for an ischemia secondary to polysubstance abuse
[2018-04-04] MEDS: NORVASC PO SCH (11:08)
[2018-04-04] MEDS ORDERED: AFLURIA QUAD 2018-2019 SYRINGE IM ONE (12:00)
--- NOTE | 2018-04-04 12:05 | Progress Note ---
Assessment and Plan Assessment and plan: --Chest pain: probably secondary to coronary spasm due to cocaine use Cardiology evaluation noted and appreciated, possible stress test tomorrow Continue current management --Polysubstance abuse;Coccain use Patient is from the [facility],Psych eval as needed Adv to quit recreational drug use --Ongoing tobacco use; smoking cessation, advised nicotine patch --History of alcohol use; advised to quit alcohol intake, Watch for withdrawal symptoms, consider CIWA protocol if needed --Hypertension; moderate control, continue current antihypertensives When necessary medications --DVT prophylaxis; Lovenox Closely monitor the patient and adjust management Possible discharge in 1-2 days if stable History Interval history: Patient seen and examined, medical records reviewed Patient's admitted with atypical chest pain, positive cocaine use Patient feels Slightly better, Mild chest pain intermittent Cardiology evaluation noted Patient is alert awake oriented 3 Vital signs reviewed Hospitalist Physical - Constitutional Vitals: Temp Pulse Resp BP Pulse Ox 98.0 F 62 18 156/83 98 04/04/18 11:42 04/04/18 11:39 04/04/18 11:39 04/04/18 11:39 04/04/18 11:39 General appearance: Present: no acute distress, well-nourished - EENT Eyes: Present: PERRL, EOM intact - Neck Neck: Present: supple, normal ROM - Respiratory Respiratory effort: normal Respiratory: bilateral: diminished, negative: rales, rhonchi, wheezing - Cardiovascular Rhythm: regular Heart Sounds: Present: S1 & S2 - Extremities Extremities: no ischemia, No edema - Abdominal General gastrointestinal: soft, non-tender, non-distended, normal bowel sounds - Integumentary Integumentary: Present: clear, warm - Psychiatric Psychiatric: appropriate mood/affect, cooperative - Neurologic Neurologic: CNII-XII intact, moves all extremities Results - Labs CBC & Chem 7: 04/03/18 10:28 04/03/18 10:28 Labs: Laboratory Last Values WBC 4.5 K/mm3 (4.5-11.0) 04/03/18 10:28 RBC 4.52 M/mm3 (3.65-5.03) 04/03/18 10:28 Hgb 9.1 gm/dl (10.1-14.3) L 04/03/18 10:28 Hct 30.3 % (30.3-42.9) 04/03/18 10:28 MCV 67 fl (79-97) L 04/03/18 10:28 MCH 20 pg (28-32) L 04/03/18 10:28 MCHC 30 % (30-34) 04/03/18 10:28 RDW 17.9 % (13.2-15.2) H 04/03/18 10:28 Plt Count 367 K/mm3 (140-440) 04/03/18 10:28 Add Manual Diff Complete 04/03/18 10:28 Total Counted 100 04/03/18 10:28 Seg Neuts % (Manual) 65.0 % (40.0-70.0) 04/03/18 10:28 Band Neutrophils % 0 % 04/03/18 10:28 Lymphocytes % (Manual) 21.0 % (13.4-35.0) 04/03/18 10:28 Reactive Lymphs % (Man) 0 % 04/03/18 10:28 Monocytes % (Manual) 4.0 % (0.0-7.3) 04/03/18 10:28 Eosinophils % (Manual) 6.0 % (0.0-4.3) H 04/03/18 10:28 Basophils % (Manual) 4.0 % (0.0-1.8) H 04/03/18 10:28 Metamyelocytes % 0 % 04/03/18 10:28 Myelocytes % 0 % 04/03/18 10:28 Promyelocytes % 0 % 04/03/18 10:28 Blast Cells % 0 % 04/03/18 10:28 Nucleated RBC % Not Reportable 04/03/18 10:28 Seg Neutrophils # Man 2.9 K/mm3 (1.8-7.7) 04/03/18 10:28 Band Neutrophils # 0.0 K/mm3 04/03/18 10:28 Lymphocytes # (Manual) 0.9 K/mm3 (1.2-5.4) L 04/03/18 10:28 Abs React Lymphs (Man) 0.0 K/mm3 04/03/18 10:28 Monocytes # (Manual) 0.2 K/mm3 (0.0-0.8) 04/03/18 10:28 Eosinophils # (Manual) 0.3 K/mm3 (0.0-0.4) 04/03/18 10:28 Basophils # (Manual) 0.2 K/mm3 (0.0-0.1) H 04/03/18 10:28 Metamyelocytes # 0.0 K/mm3 04/03/18 10:28 Myelocytes # 0.0 K/mm3 04/03/18 10:28 Promyelocytes # 0.0 K/mm3 04/03/18 10:28 Blast Cells # 0.0 K/mm3 04/03/18 10:28 WBC Morphology Not Reportable 04/03/18 10:28 Hypersegmented Neuts Not Reportable 04/03/18 10:28 Hyposegmented Neuts Not Reportable 04/03/18 10:28 Hypogranular Neuts Not Reportable 04/03/18 10:28 Smudge Cells Not Reportable 04/03/18 10:28 Toxic Granulation Not Reportable 04/03/18 10:28 Toxic Vacuolation Not Reportable 04/03/18 10:28 Dohle Bodies Not Reportable 04/03/18 10:28 Pelger-Huet Anomaly Not Reportable 04/03/18 10:28 Ata Rods Not Reportable 04/03/18 10:28 Platelet Estimate Consistent w auto 04/03/18 10:28 Clumped Platelets Not Reportable 04/03/18 10:28 Plt Clumps, EDTA Not Reportable 04/03/18 10:28 Large Platelets Not Reportable 04/03/18 10:28 Giant Platelets Not Reportable 04/03/18 10:28 Platelet Satelliting Not Reportable 04/03/18 10:28 Plt Morphology Comment Not Reportable 04/03/18 10:28 RBC Morphology Not Reportable 04/03/18 10:28 Dimorphic RBCs Not Reportable 04/03/18 10:28 Polychromasia Not Reportable 04/03/18 10:28 Hypochromasia 2+ 04/03/18 10:28 Poikilocytosis Not Reportable 04/03/18 10:28 Anisocytosis Not Reportable 04/03/18 10:28 Microcytosis Not Reportable 04/03/18 10:28 Macrocytosis Not Reportable 04/03/18 10:28 Spherocytes Not Reportable 04/03/18 10:28 Pappenheimer Bodies Not Reportable 04/03/18 10:28 Sickle Cells Not Reportable 04/03/18 10:28 Target Cells 1+ 04/03/18 10:28 Tear Drop Cells Not Reportable 04/03/18 10:28 Ovalocytes Not Reportable 04/03/18 10:28 Helmet Cells Not Reportable 04/03/18 10:28 Monae-[place] Bodies Not Reportable 04/03/18 10:28 [place] Rings Not Reportable 04/03/18 10:28 [place] Cells Not Reportable 04/03/18 10:28 Bite Cells Not Reportable 04/03/18 10:28 Crenated Cell Not Reportable 04/03/18 10:28 Elliptocytes Few 04/03/18 10:28 Acanthocytes (Spur) Not Reportable 04/03/18 10:28 Rouleaux Not Reportable 04/03/18 10:28 Hemoglobin C Crystals Not Reportable 04/03/18 10:28 Schistocytes Not Reportable 04/03/18 10:28 Malaria parasites Not Reportable 04/03/18 10:28 Maximilian Bodies Not Reportable 04/03/18 10:28 Hem Pathologist Commnt No 04/03/18 10:28 Sodium 140 mmol/L (137-145) 04/03/18 10:28 Potassium 3.8 mmol/L (3.6-5.0) 04/03/18 10:28 Chloride 104.6 mmol/L (98-107) 04/03/18 10:28 Carbon Dioxide 25 mmol/L (22-30) 04/03/18 10:28 Anion Gap 14 mmol/L 04/03/18 10:28 BUN 12 mg/dL (7-17) 04/03/18 10:28 Creatinine 0.6 mg/dL (0.7-1.2) L 04/03/18 10:28 Estimated GFR > 60 ml/min 04/03/18 10:28 BUN/Creatinine Ratio 20 % 04/03/18 10:28 Glucose 75 mg/dL (65-100) 04/03/18 10:28 Calcium 9.0 mg/dL (8.4-10.2) 04/03/18 10:28 Total Creatine Kinase 186 units/L (30-135) H 04/03/18 11:00 Troponin T < 0.010 ng/mL (0.00-0.029) 04/03/18 16:51 Triglycerides 68 mg/dL (2-149) 04/03/18 13:45 Cholesterol 134 mg/dL (50-199) 04/03/18 13:45 LDL Cholesterol Direct 68 mg/dL (50-130) 04/03/18 13:45 HDL Cholesterol 66 mg/dL (40-59) H 04/03/18 13:45 Cholesterol/HDL Ratio 2.03 % 04/03/18 13:45 Salicylates < 0.3 mg/dL (2.8-20.0) L 04/03/18 11:00 Urine Opiates Screen Presumptive positive 04/03/18 04:47 Urine Methadone Screen Presumptive negative 04/03/18 04:47 Acetaminophen < 5.0 ug/mL (10.0-30.0) L 04/03/18 11:00 Ur Barbiturates Screen Presumptive negative 04/03/18 04:47 Ur Phencyclidine Scrn Presumptive negative 04/03/18 04:47 Ur Amphetamines Screen Presumptive negative 04/03/18 04:47 U Benzodiazepines Scrn Presumptive negative 04/03/18 04:47 Urine Cocaine Screen Presumptive positive 04/03/18 04:47 U Marijuana (THC) Screen Presumptive negative 04/03/18 04:47 Drugs of Abuse Note Disclamer 04/03/18 04:47
[2018-04-04] MEDS ORDERED: MORPHINE IV PRN (15:28)
[2018-04-04] MEDS: PERCOCET 5/325 PO PRN ×2 (17:52→23:47)
[2018-04-04] MEDS: LOVENOX SUB-Q SCH (22:16)
[2018-04-05] MEDS: PERCOCET 5/325 PO PRN ×3 (08:58→21:44)
[2018-04-05] MEDS ORDERED: LEXISCAN IV ONE ×2 (11:20→11:21)
[2018-04-05] MEDS: NORVASC PO SCH (14:29)
[2018-04-05] MEDS: EFFEXOR XR PO SCH (14:29)
[2018-04-05] MEDS: PEPCID PO SCH ×2 (14:29→21:44)
[2018-04-05] MEDS: SODIUM CHLORIDE FLUSH SYRINGE 10 ML IV SCH ×2 (14:30→21:44)
--- NOTE | 2018-04-05 16:20 | Progress Note ---
Assessment and Plan Assessment: Chest pain secondary to cocaine Hypertension Osteoarthritis Mental illness Plan: S/p lexiscan MPI stress test this AM which was negative. Continue Norvasc for BP control and avoid beta blockers given his history of cocaine use. Currently stable cardiac status. Pt may discharge home from cardiology standpoint. Follow up in our office with Dr. Finnegan within 1-2 weeks of hospital discharge ([phone]). The patient has been seen in conjunction with Dr. Shan Aaron who agrees with the assessment and plan of care. Subjective Date of service: 04/05/18 Principal diagnosis: cp Interval history: for stress test Objective Last Vital Signs Temp 97.3 F L 04/05/18 15:47 Pulse 64 04/05/18 15:47 Resp 18 04/05/18 15:47 BP 161/78 04/05/18 15:47 Pulse Ox 100 04/05/18 15:47 - Physical Examination General: No Apparent Distress HEENT: Positive: PERRL, Mucus Membranes Moist Neck: Positive: neck supple, trachea midline Cardiac: Positive: Reg Rate and Rhythm, S1/S2 Lungs: Positive: clear to auscultation Neuro: Positive: Grossly Intact Abdomen: Positive: Soft, Active Bowel Sounds. Negative: Tender, Distended Skin: Positive: Clear Incision: Cardiac Cath Site Musculoskeletal: No Pain, Normal Range of Motion Extremities: Present: normal. Absent: edema - Imaging and Cardiology Stress echo: other (03/2017 normal myocardial perfusion no ischemia) Echo: report reviewed (03/2017 normal LV functionand significant regurgitations)
--- NOTE | 2018-04-05 16:31 | Treadmill Report ---
NUCLEAR PERFUSION SCAN REFERRING PHYSICIAN: Emery Olmos M.D. PROTOCOL: The patient was brought to the stress lab in a postabsorptive state, given 10 mCi of technetium 99m at rest. The patient underwent rest imaging. The patient underwent Lexiscan stress test. At peak stress, the patient was given 26 mCi of technetium 99m. Shortly thereafter, the patient underwent stress imaging. Raw imaging reveals mild GI artifact, no significant motion artifact. SPECT images examined carefully in horizontal long axis, vertical long axis, and short axis views. There is normal homogenous uptake of radioisotope in all reported segments. No evidence of a significant fixed or reversible perfusion defects suggestive of prior infarction or ischemia. Gated wall motion was normal systolic thickening, calculated ejection fraction of 58%. No TID. CONCLUSIONS: 1. Normal myocardial perfusion scan without evidence of active ischemia or prior infarction. 2. Normal left ventricular systolic performance without evidence of transient ischemic dilatation or stress-induced segmental wall motion abnormalities. 3. Lexiscan stress test reported separately. JOB# [id number] SBGeoff/MARGRET
--- NOTE | 2018-04-05 18:57 | Progress Note ---
Assessment and Plan Assessment and plan: --Chest pain: probably secondary to coronary spasm due to cocaine use Cardiology evaluated ,stress test negative, noncardiac chest pain --Noncardiac chest pain probably due to GERD; Protonix --Polysubstance abuse;Coccain use Patient is from the [facility],Psych eval as needed Adv to quit recreational drug use --Ongoing tobacco use; smoking cessation, advised nicotine patch --History of alcohol use; advised to quit alcohol intake, Watch for withdrawal symptoms, consider CIWA protocol if needed --Hypertension; moderate control, continue current antihypertensives When necessary medications --DVT prophylaxis; Lovenox Patient is stable to be discharged DC planning; case management, patient has multiple social issues [facility] Possible [facility] tomorrow History Interval history: Patient seen and examination medical records reviewed Patient had negative stress test today Vital signs noted Patient has no new complaints Hospitalist Physical - Constitutional Vitals: Temp Pulse Resp BP Pulse Ox 97.3 F L 64 18 161/78 100 04/05/18 15:47 04/05/18 15:47 04/05/18 15:47 04/05/18 15:47 04/05/18 15:47 General appearance: Present: no acute distress, well-nourished - EENT Eyes: Present: PERRL, EOM intact - Neck Neck: Present: supple, normal ROM - Respiratory Respiratory effort: normal Respiratory: bilateral: diminished, negative: rales, rhonchi, wheezing - Cardiovascular Rhythm: regular Heart Sounds: Present: S1 & S2 - Extremities Extremities: no ischemia, No edema - Abdominal General gastrointestinal: soft, non-tender, non-distended, normal bowel sounds - Integumentary Integumentary: Present: clear, warm - Psychiatric Psychiatric: appropriate mood/affect, cooperative - Neurologic Neurologic: CNII-XII intact, moves all extremities Results - Labs CBC & Chem 7: 04/03/18 10:28 04/03/18 10:28 Labs: Laboratory Last Values WBC 4.5 K/mm3 (4.5-11.0) 04/03/18 10:28 RBC 4.52 M/mm3 (3.65-5.03) 04/03/18 10:28 Hgb 9.1 gm/dl (10.1-14.3) L 04/03/18 10:28 Hct 30.3 % (30.3-42.9) 04/03/18 10:28 MCV 67 fl (79-97) L 04/03/18 10:28 MCH 20 pg (28-32) L 04/03/18 10:28 MCHC 30 % (30-34) 04/03/18 10:28 RDW 17.9 % (13.2-15.2) H 04/03/18 10:28 Plt Count 367 K/mm3 (140-440) 04/03/18 10:28 Add Manual Diff Complete 04/03/18 10:28 Total Counted 100 04/03/18 10:28 Seg Neuts % (Manual) 65.0 % (40.0-70.0) 04/03/18 10:28 Band Neutrophils % 0 % 04/03/18 10:28 Lymphocytes % (Manual) 21.0 % (13.4-35.0) 04/03/18 10:28 Reactive Lymphs % (Man) 0 % 04/03/18 10:28 Monocytes % (Manual) 4.0 % (0.0-7.3) 04/03/18 10:28 Eosinophils % (Manual) 6.0 % (0.0-4.3) H 04/03/18 10:28 Basophils % (Manual) 4.0 % (0.0-1.8) H 04/03/18 10:28 Metamyelocytes % 0 % 04/03/18 10:28 Myelocytes % 0 % 04/03/18 10:28 Promyelocytes % 0 % 04/03/18 10:28 Blast Cells % 0 % 04/03/18 10:28 Nucleated RBC % Not Reportable 04/03/18 10:28 Seg Neutrophils # Man 2.9 K/mm3 (1.8-7.7) 04/03/18 10:28 Band Neutrophils # 0.0 K/mm3 04/03/18 10:28 Lymphocytes # (Manual) 0.9 K/mm3 (1.2-5.4) L 04/03/18 10:28 Abs React Lymphs (Man) 0.0 K/mm3 04/03/18 10:28 Monocytes # (Manual) 0.2 K/mm3 (0.0-0.8) 04/03/18 10:28 Eosinophils # (Manual) 0.3 K/mm3 (0.0-0.4) 04/03/18 10:28 Basophils # (Manual) 0.2 K/mm3 (0.0-0.1) H 04/03/18 10:28 Metamyelocytes # 0.0 K/mm3 04/03/18 10:28 Myelocytes # 0.0 K/mm3 04/03/18 10:28 Promyelocytes # 0.0 K/mm3 04/03/18 10:28 Blast Cells # 0.0 K/mm3 04/03/18 10:28 WBC Morphology Not Reportable 04/03/18 10:28 Hypersegmented Neuts Not Reportable 04/03/18 10:28 Hyposegmented Neuts Not Reportable 04/03/18 10:28 Hypogranular Neuts Not Reportable 04/03/18 10:28 Smudge Cells Not Reportable 04/03/18 10:28 Toxic Granulation Not Reportable 04/03/18 10:28 Toxic Vacuolation Not Reportable 04/03/18 10:28 Dohle Bodies Not Reportable 04/03/18 10:28 Pelger-Huet Anomaly Not Reportable 04/03/18 10:28 Ata Rods Not Reportable 04/03/18 10:28 Platelet Estimate Consistent w auto 04/03/18 10:28 Clumped Platelets Not Reportable 04/03/18 10:28 Plt Clumps, EDTA Not Reportable 04/03/18 10:28 Large Platelets Not Reportable 04/03/18 10:28 Giant Platelets Not Reportable 04/03/18 10:28 Platelet Satelliting Not Reportable 04/03/18 10:28 Plt Morphology Comment Not Reportable 04/03/18 10:28 RBC Morphology Not Reportable 04/03/18 10:28 Dimorphic RBCs Not Reportable 04/03/18 10:28 Polychromasia Not Reportable 04/03/18 10:28 Hypochromasia 2+ 04/03/18 10:28 Poikilocytosis Not Reportable 04/03/18 10:28 Anisocytosis Not Reportable 04/03/18 10:28 Microcytosis Not Reportable 04/03/18 10:28 Macrocytosis Not Reportable 04/03/18 10:28 Spherocytes Not Reportable 04/03/18 10:28 Pappenheimer Bodies Not Reportable 04/03/18 10:28 Sickle Cells Not Reportable 04/03/18 10:28 Target Cells 1+ 04/03/18 10:28 Tear Drop Cells Not Reportable 04/03/18 10:28 Ovalocytes Not Reportable 04/03/18 10:28 Helmet Cells Not Reportable 04/03/18 10:28 Monae-[place] Bodies Not Reportable 04/03/18 10:28 [place] Rings Not Reportable 04/03/18 10:28 [place] Cells Not Reportable 04/03/18 10:28 Bite Cells Not Reportable 04/03/18 10:28 Crenated Cell Not Reportable 04/03/18 10:28 Elliptocytes Few 04/03/18 10:28 Acanthocytes (Spur) Not Reportable 04/03/18 10:28 Rouleaux Not Reportable 04/03/18 10:28 Hemoglobin C Crystals Not Reportable 04/03/18 10:28 Schistocytes Not Reportable 04/03/18 10:28 Malaria parasites Not Reportable 04/03/18 10:28 Maximilian Bodies Not Reportable 04/03/18 10:28 Hem Pathologist Commnt No 04/03/18 10:28 Sodium 140 mmol/L (137-145) 04/03/18 10:28 Potassium 3.8 mmol/L (3.6-5.0) 04/03/18 10:28 Chloride 104.6 mmol/L (98-107) 04/03/18 10:28 Carbon Dioxide 25 mmol/L (22-30) 04/03/18 10:28 Anion Gap 14 mmol/L 04/03/18 10:28 BUN 12 mg/dL (7-17) 04/03/18 10:28 Creatinine 0.6 mg/dL (0.7-1.2) L 04/03/18 10:28 Estimated GFR > 60 ml/min 04/03/18 10:28 BUN/Creatinine Ratio 20 % 04/03/18 10:28 Glucose 75 mg/dL (65-100) 04/03/18 10:28 Calcium 9.0 mg/dL (8.4-10.2) 04/03/18 10:28 Total Creatine Kinase 186 units/L (30-135) H 04/03/18 11:00 Troponin T < 0.010 ng/mL (0.00-0.029) 04/03/18 16:51 Triglycerides 68 mg/dL (2-149) 04/03/18 13:45 Cholesterol 134 mg/dL (50-199) 04/03/18 13:45 LDL Cholesterol Direct 68 mg/dL (50-130) 04/03/18 13:45 HDL Cholesterol 66 mg/dL (40-59) H 04/03/18 13:45 Cholesterol/HDL Ratio 2.03 % 04/03/18 13:45 Salicylates < 0.3 mg/dL (2.8-20.0) L 04/03/18 11:00 Urine Opiates Screen Presumptive positive 04/03/18 04:47 Urine Methadone Screen Presumptive negative 04/03/18 04:47 Acetaminophen < 5.0 ug/mL (10.0-30.0) L 04/03/18 11:00 Ur Barbiturates Screen Presumptive negative 04/03/18 04:47 Ur Phencyclidine Scrn Presumptive negative 04/03/18 04:47 Ur Amphetamines Screen Presumptive negative 04/03/18 04:47 U Benzodiazepines Scrn Presumptive negative 04/03/18 04:47 Urine Cocaine Screen Presumptive positive 04/03/18 04:47 U Marijuana (THC) Screen Presumptive negative 04/03/18 04:47 Drugs of Abuse Note Disclamer 04/03/18 04:47
[2018-04-05] MEDS: LOVENOX SUB-Q SCH (21:44)
[2018-04-06] MEDS: NORVASC PO SCH (10:22)
[2018-04-06] MEDS: PERCOCET 5/325 PO PRN ×2 (10:22→15:35)
[2018-04-06] MEDS: PEPCID PO SCH ×2 (10:22→22:50)
[2018-04-06] MEDS: SODIUM CHLORIDE FLUSH SYRINGE 10 ML IV SCH ×2 (10:24→22:50)
--- NOTE | 2018-04-06 13:04 | Progress Note ---
Assessment and Plan Assessment and plan: --Suicidal thoughts/ideation/plan; Expressed to the nursing staff Suicidal watch, 1013 status, Psych evaluation --Chest pain: probably secondary to coronary spasm due to cocaine use Cardiology evaluated ,stress test negative, noncardiac chest pain --Noncardiac chest pain probably due to GERD; Protonix --Polysubstance abuse;Coccain use Patient is from the [facility],Psych eval as needed Adv to quit recreational drug use --Ongoing tobacco use; smoking cessation, advised nicotine patch --History of alcohol use; advised to quit alcohol intake, Watch for withdrawal symptoms, consider CIWA protocol if needed --Hypertension; moderate control, continue current antihypertensives When necessary medications --DVT prophylaxis; Lovenox DC planning; case management, patient has multiple social issues [facility] is [facility] for [facility] Disposition per psych History Interval history: Patient seen and examined medical records reviewed The patient is medically stable for discharge Discharge planning was being made by the case management and Sw Patient Could not return to [facility] Grand daughter did not want her to come back Other potions of discharge was being planned but Patient was angry and went to [facility] herself, they brought her back to the emergency room and patient was brought to the floor Now patient complaints of suicidal thoughts, ideation and plan And want to hurt herself Hospitalist Physical - Constitutional Vitals: Temp Pulse Resp BP Pulse Ox 98.1 F 73 24 140/66 98 04/06/18 04:12 04/06/18 04:12 04/06/18 04:12 04/06/18 04:12 04/06/18 04:12 General appearance: Present: mild distress, well-nourished - EENT Eyes: Present: PERRL, EOM intact - Neck Neck: Present: supple, normal ROM - Respiratory Respiratory effort: normal Respiratory: negative: diminished, rales, rhonchi, wheezing - Cardiovascular Rhythm: regular Heart Sounds: Present: S1 & S2 - Extremities Extremities: no ischemia, No edema - Abdominal General gastrointestinal: soft, non-tender, non-distended, normal bowel sounds - Integumentary Integumentary: Present: clear, warm - Psychiatric Psychiatric: appropriate mood/affect, agitated - Neurologic Neurologic: moves all extremities Results - Labs CBC & Chem 7: 04/03/18 10:28 04/03/18 10:28 Labs: Laboratory Last Values WBC 4.5 K/mm3 (4.5-11.0) 04/03/18 10:28 RBC 4.52 M/mm3 (3.65-5.03) 04/03/18 10:28 Hgb 9.1 gm/dl (10.1-14.3) L 04/03/18 10:28 Hct 30.3 % (30.3-42.9) 04/03/18 10:28 MCV 67 fl (79-97) L 04/03/18 10:28 MCH 20 pg (28-32) L 04/03/18 10:28 MCHC 30 % (30-34) 04/03/18 10:28 RDW 17.9 % (13.2-15.2) H 04/03/18 10:28 Plt Count 367 K/mm3 (140-440) 04/03/18 10:28 Add Manual Diff Complete 04/03/18 10:28 Total Counted 100 04/03/18 10:28 Seg Neuts % (Manual) 65.0 % (40.0-70.0) 04/03/18 10:28 Band Neutrophils % 0 % 04/03/18 10:28 Lymphocytes % (Manual) 21.0 % (13.4-35.0) 04/03/18 10:28 Reactive Lymphs % (Man) 0 % 04/03/18 10:28 Monocytes % (Manual) 4.0 % (0.0-7.3) 04/03/18 10:28 Eosinophils % (Manual) 6.0 % (0.0-4.3) H 04/03/18 10:28 Basophils % (Manual) 4.0 % (0.0-1.8) H 04/03/18 10:28 Metamyelocytes % 0 % 04/03/18 10:28 Myelocytes % 0 % 04/03/18 10:28 Promyelocytes % 0 % 04/03/18 10:28 Blast Cells % 0 % 04/03/18 10:28 Nucleated RBC % Not Reportable 04/03/18 10:28 Seg Neutrophils # Man 2.9 K/mm3 (1.8-7.7) 04/03/18 10:28 Band Neutrophils # 0.0 K/mm3 04/03/18 10:28 Lymphocytes # (Manual) 0.9 K/mm3 (1.2-5.4) L 04/03/18 10:28 Abs React Lymphs (Man) 0.0 K/mm3 04/03/18 10:28 Monocytes # (Manual) 0.2 K/mm3 (0.0-0.8) 04/03/18 10:28 Eosinophils # (Manual) 0.3 K/mm3 (0.0-0.4) 04/03/18 10:28 Basophils # (Manual) 0.2 K/mm3 (0.0-0.1) H 04/03/18 10:28 Metamyelocytes # 0.0 K/mm3 04/03/18 10:28 Myelocytes # 0.0 K/mm3 04/03/18 10:28 Promyelocytes # 0.0 K/mm3 04/03/18 10:28 Blast Cells # 0.0 K/mm3 04/03/18 10:28 WBC Morphology Not Reportable 04/03/18 10:28 Hypersegmented Neuts Not Reportable 04/03/18 10:28 Hyposegmented Neuts Not Reportable 04/03/18 10:28 Hypogranular Neuts Not Reportable 04/03/18 10:28 Smudge Cells Not Reportable 04/03/18 10:28 Toxic Granulation Not Reportable 04/03/18 10:28 Toxic Vacuolation Not Reportable 04/03/18 10:28 Dohle Bodies Not Reportable 04/03/18 10:28 Pelger-Huet Anomaly Not Reportable 04/03/18 10:28 Ata Rods Not Reportable 04/03/18 10:28 Platelet Estimate Consistent w auto 04/03/18 10:28 Clumped Platelets Not Reportable 04/03/18 10:28 Plt Clumps, EDTA Not Reportable 04/03/18 10:28 Large Platelets Not Reportable 04/03/18 10:28 Giant Platelets Not Reportable 04/03/18 10:28 Platelet Satelliting Not Reportable 04/03/18 10:28 Plt Morphology Comment Not Reportable 04/03/18 10:28 RBC Morphology Not Reportable 04/03/18 10:28 Dimorphic RBCs Not Reportable 04/03/18 10:28 Polychromasia Not Reportable 04/03/18 10:28 Hypochromasia 2+ 04/03/18 10:28 Poikilocytosis Not Reportable 04/03/18 10:28 Anisocytosis Not Reportable 04/03/18 10:28 Microcytosis Not Reportable 04/03/18 10:28 Macrocytosis Not Reportable 04/03/18 10:28 Spherocytes Not Reportable 04/03/18 10:28 Pappenheimer Bodies Not Reportable 04/03/18 10:28 Sickle Cells Not Reportable 04/03/18 10:28 Target Cells 1+ 04/03/18 10:28 Tear Drop Cells Not Reportable 04/03/18 10:28 Ovalocytes Not Reportable 04/03/18 10:28 Helmet Cells Not Reportable 04/03/18 10:28 Monae-Ecru Bodies Not Reportable 04/03/18 10:28 [place] Rings Not Reportable 04/03/18 10:28 [place] Cells Not Reportable 04/03/18 10:28 Bite Cells Not Reportable 04/03/18 10:28 Crenated Cell Not Reportable 04/03/18 10:28 Elliptocytes Few 04/03/18 10:28 Acanthocytes (Spur) Not Reportable 04/03/18 10:28 Rouleaux Not Reportable 04/03/18 10:28 Hemoglobin C Crystals Not Reportable 04/03/18 10:28 Schistocytes Not Reportable 04/03/18 10:28 Malaria parasites Not Reportable 04/03/18 10:28 Maximilian Bodies Not Reportable 04/03/18 10:28 Hem Pathologist Commnt No 04/03/18 10:28 Sodium 140 mmol/L (137-145) 04/03/18 10:28 Potassium 3.8 mmol/L (3.6-5.0) 04/03/18 10:28 Chloride 104.6 mmol/L (98-107) 04/03/18 10:28 Carbon Dioxide 25 mmol/L (22-30) 04/03/18 10:28 Anion Gap 14 mmol/L 04/03/18 10:28 BUN 12 mg/dL (7-17) 04/03/18 10:28 Creatinine 0.6 mg/dL (0.7-1.2) L 04/03/18 10:28 Estimated GFR > 60 ml/min 04/03/18 10:28 BUN/Creatinine Ratio 20 % 04/03/18 10:28 Glucose 75 mg/dL (65-100) 04/03/18 10:28 Calcium 9.0 mg/dL (8.4-10.2) 04/03/18 10:28 Total Creatine Kinase 186 units/L (30-135) H 04/03/18 11:00 Troponin T < 0.010 ng/mL (0.00-0.029) 04/03/18 16:51 Triglycerides 68 mg/dL (2-149) 04/03/18 13:45 Cholesterol 134 mg/dL (50-199) 04/03/18 13:45 LDL Cholesterol Direct 68 mg/dL (50-130) 04/03/18 13:45 HDL Cholesterol 66 mg/dL (40-59) H 04/03/18 13:45 Cholesterol/HDL Ratio 2.03 % 04/03/18 13:45 Salicylates < 0.3 mg/dL (2.8-20.0) L 04/03/18 11:00 Urine Opiates Screen Presumptive positive 04/03/18 04:47 Urine Methadone Screen Presumptive negative 04/03/18 04:47 Acetaminophen < 5.0 ug/mL (10.0-30.0) L 04/03/18 11:00 Ur Barbiturates Screen Presumptive negative 04/03/18 04:47 Ur Phencyclidine Scrn Presumptive negative 04/03/18 04:47 Ur Amphetamines Screen Presumptive negative 04/03/18 04:47 U Benzodiazepines Scrn Presumptive negative 04/03/18 04:47 Urine Cocaine Screen Presumptive positive 04/03/18 04:47 U Marijuana (THC) Screen Presumptive negative 04/03/18 04:47 Drugs of Abuse Note Disclamer 04/03/18 04:47
[2018-04-06] MEDS: EFFEXOR XR PO SCH (13:08)
[2018-04-06 17:02] VITALS: BP 151/66
[2018-04-06] MEDS: LOVENOX SUB-Q SCH (22:50)
--- NOTE | 2018-04-07 09:00 | Discharge Summary ---
Providers - Providers Date of Admission: 04/03/18 12:29 Date of discharge: 04/06/18 Attending physician: MANSI LEDESMA 04/03/18 Consult to Cardiac Rehabilitation [CONS] Routine Reason For Exam: Phase I 04/03/18 10:53 Consult to Mental Health [CONS] Urgent Reason For Exam: cocaine addiction Place consult to:: [facility] production line [facility] Notified:: awaiting call back Phone number called:: [phone] Was contact made?: Yes If yes, spoke with:: dwain Time called:: 15:37 Comment:: renotified 04/04/18 [id number] and krista was on floor 04/03/18 12:29 Consult to Physician [CONS] Routine Comment: Consulting Provider: GALLO HUGHES Physician Instructions: Reason For Exam: chest pain Primary care physician: HELEN CROWELL Hospitalization Reason for admission: chest pain/suicidal thoughts Condition: Good Hospital course: The patient is medically stable for discharge Discharge planning was being made by the case management and Sw Patient Could not return to [facility] Grand daughter did not want her to come back Other potions of discharge was being planned but Patient was angry and went to [facility] herself, they brought her back to the emergency room and patient was brought to the floor Now patient complaints of suicidal thoughts, ideation and plan And want to hurt herself, placed on 1013 Psych evaluated the patient, medically cleared for discharge and transfer to to [place] Discharge diagnosis --Suicidal thoughts/ideation/plan; Expressed to the nursing staff Suicidal watch, 1013 status, Psych evaluation --Chest pain: probably secondary to coronary spasm due to cocaine use Cardiology evaluated ,stress test negative, noncardiac chest pain --Noncardiac chest pain probably due to GERD; Protonix --Polysubstance abuse;Coccain use Patient is from the [facility],Psych eval as needed Adv to quit recreational drug use --Ongoing tobacco use; smoking cessation, advised nicotine patch --History of alcohol use; advised to quit alcohol intake, Watch for withdrawal symptoms, consider CIWA protocol if needed --Hypertension; moderate control, continue current antihypertensives When necessary medications --DVT prophylaxis; Lovenox DC planning; case management, patient has multiple social issues [facility] is medically [facility] for discharge to [place] Disposition: [id number]/[id number] PSY HOSP/PSY UNIT Time spent for discharge: 32 min Core Measure Documentation - Palliative Care Palliative Care/ Comfort Measures: Not Applicable - Core Measures Any of the following diagnoses?: none Exam - Constitutional Vitals: Temp Pulse Resp BP Pulse Ox 98.1 F 63 18 151/66 96 04/06/18 16:52 04/06/18 16:52 04/06/18 21:10 04/06/18 16:52 04/06/18 16:52 General appearance: Present: no acute distress, well-nourished - EENT Eyes: Present: PERRL, EOM intact - Neck Neck: Present: supple, normal ROM - Respiratory Respiratory effort: normal Respiratory: bilateral: diminished, negative: rales, rhonchi, wheezing - Cardiovascular Rhythm: regular Heart Sounds: Present: S1 & S2 - Extremities Extremities: no ischemia, No edema - Abdominal General gastrointestinal: Present: soft, non-tender, non-distended, normal bowel sounds - Integumentary Integumentary: Present: clear, warm - Musculoskeletal Musculoskeletal: strength equal bilaterally - Psychiatric Psychiatric: appropriate mood/affect, depressed - Neurologic Neurologic: moves all extremities Plan Follow up with: HELEN CROWELL MD [Primary Care Provider] - 3-5 Days
== END 2018-04-06 22:51 | DRG 896 ==
LOC: ED 09:19 → 4A 12:29 → 3A 04-05 21:20
PROVIDERS: ADMIT Internal Medicine; ATTEND Internal Medicine
DX: F14.99 Cocaine use, unspecified with unspecified cocaine-induced disorder (principal); I50.31 Acute diastolic (congestive) heart failure; R45.851 Suicidal ideations; I20.1 Angina pectoris with documented spasm; I11.0 Hypertensive heart disease with heart failure; K21.9 Gastro-esophageal reflux disease without esophagitis; F19.10 Other psychoactive substance abuse, uncomplicated; F17.200 Nicotine dependence, unspecified, uncomplicated; R94.31 Abnormal electrocardiogram [ECG] [EKG]; F32.9 Major depressive disorder, single episode, unspecified; M19.90 Unspecified osteoarthritis, unspecified site; T40.5X5A Adverse effect of cocaine, initial encounter; Y92.89 Other specified places as the place of occurrence of the external cause; Z72.89 Other problems related to lifestyle; Z82.49 Family history of ischemic heart disease and other diseases of the circulatory system; Z79.899 Other long term (current) drug therapy; Z71.6 Tobacco abuse counseling; Z71.41 Alcohol abuse counseling and surveillance of alcoholic; Z79.82 Long term (current) use of aspirin; Z98.84 Bariatric surgery status
CPT/HCPCS: 36415; 71046; 78452; 80048; 80061; 80307; 80320; 82550; 84484; 85007; 85025; 87116; 90471; 90686; 93005; 93010; 93017; 93306; 96374; 99285; G0378; A9502; G0008; G0480; J1650; J2270; J2785